=== PATIENT | female | born 1945 | race Native Hawaiian/Other Pacific Islander ===

== ENCOUNTER 2021-04-06 17:23 | Emergency (ER) | payer OTHER ==
[~2021-04-06] VITALS: Ht 157.5 cm; Wt 45.8 kg
[2021-04-06 17:23] VITALS: TEMP 97.2
[~2021-04-06 17:23] MED LIST: AMLODIPINE BESYLATE PO; ATOR20TA2 PO; CHOL100034 PO; DULO30CA PO; FAMOTIDINE20 MG PO; GABA300C2 PO; HYDR5TAB9 PO; LIDOPATCH TOP; ZANAFLEX2 MG PO
[2021-04-06 18:00] LABS: PLATELET COUNT 320 K/uL (152-353)
[2021-04-06 18:43] VITALS: BP 122/62
[2021-04-07] MEDS ORDERED: CLON0.5T36 PO (14:04)
[2021-04-07] MEDS ORDERED: AMLODIPINE BESYLATE PO (14:04)
[2021-04-07] MEDS ORDERED: FENT12DI3 TD (14:07)
[2021-04-07] MEDS ORDERED: HYDROCODONE BIT1 TA2 PO (14:08)
[2021-04-07] MEDS ORDERED: TYLENOL325 MG PO (14:09)
[2021-04-07] MEDS ORDERED: TIZANIDINE HYDRO4 M1 PO (14:10)
== END 2021-04-06 18:58 | disposition still patient (30) ==
LOC: ED 17:23
PROVIDERS: Hospitalist
DX: F03.91 Unspecified dementia, unspecified severity, with behavioral disturbance (principal); U07.1 COVID-19; R30.0 Dysuria; Z04.6 Encounter for general psychiatric examination, requested by authority
CPT/HCPCS: 80053; 81000; 85027; 87086; 87088; 87635; 93005; 96372; 99283; J0696; J2360; J2930; U0003